=== PATIENT | female | born 1990 | race Caucasian/White ===

== ENCOUNTER 2018-07-13 18:47 | Emergency (ER) | payer OTHER ==
[2018-07-13 19:05] VITALS: BP 109/62; Ht 157.5 cm
== END 2018-07-13 21:31 | disposition home or self-care (01) ==
LOC: ED 18:47
DX: S61.211A Laceration without foreign body of left index finger without damage to nail, initial encounter (principal); W26.0XXA Contact with knife, initial encounter; Y93.G3 Activity, cooking and baking; Y92.090 Kitchen in other non-institutional residence as the place of occurrence of the external cause; Y99.8 Other external cause status; Z90.89 Acquired absence of other organs; Z98.890 Other specified postprocedural states
CPT/HCPCS: 90715